=== PATIENT | female | born 1950 | race Caucasian/White ===

== ENCOUNTER 2025-08-31 23:43 | Emergency (ER) | payer MEDICARE, BC, SELFPAY ==
[2025-08-31 23:47] VITALS: BP 135/40
[2025-08-31 23:49] VITALS: BP 135/40; BMI 21.0
[2025-09-01 00:06] VITALS: BP 112/85
[2025-09-01 00:26] LABS: ALT (SGPT) 15 U/L (0-35); AST (SGOT) 18 U/L (14-36); Albumin 4.2 g/dl (3.5-5.0); Alkaline Phosphatase 82 U/L (38-126); Blood Urea Nitrogen 51 mg/dl (7-17); Calcium 10.2 mg/dl (8.4-10.2); Carbon Dioxide 28 mmol/L (22-30); Chloride 103 mmol/L (98-107); Estimated Creatinine Clearance 32 ml/min; Glucose 103 mg/dl (70-99); Lipase 181 U/L (23-300); Potassium 3.9 mmol/L (3.5-5.1); Sodium 140 mmol/L (135-145); Total Protein 6.8 g/dl (6.3-8.2); eGFR 52.73
[2025-09-01] MEDS: NSS 500 IV (00:31)
[2025-09-01 00:40] LABS: Hematocrit 36.4 % (37.0-47.0); Hemoglobin 12.2 g/dL (12.0-16.0); Mean Corp Hgb Conc. 33.5 g/dL (33.0-37.0); Mean Corpuscular Volume 97.8 fL (81.0-99.0); Nucleated Red Blood Cells % 0 %; Platelet Count 223 10^3/uL (130-400); Red Cell Dist. Width 13.2 % (11.5-14.5)
[2025-09-01 01:00] VITALS: BP 145/81
[2025-09-01] MEDS: ZOFRAN 4 MG IV (01:13)
--- NOTE | 2025-09-01 01:28 | ED.GENMED ---
History of Present Illness
General
Chief Complaint: Abdominal Symptoms
Source: patient
Exam Limitations: none
Time Seen by Provider: 08/31/25 23:55
Nursing documentation reviewed up to this point in time: agreed with
History of Present Illness
History of Present Illness:
see MDM
Past History
Past History
ED Past Medical History: CAD, HTN, Hypercholesterolemia, Other (dementia) and Other (psychosis)
Review of Systems
Review of Systems
Allergies reviewed?: Yes
All Other Systems: Not applicable
Phy Exam
Physical Exam
Physical Exam:
GENERAL: Alert , in no apparent distress, dementia
EYE: pupils equal and reactive
NECK: Supple
ENT: o/p clr, mmm.
CARDIAC: Regular rate and rhythm .
LUNGS: Clear breath sounds bilaterally, no acute respiratory distress, no wheezes/rales/rhonchi
ABDOMEN: Soft, mild periumbilical tenderness, no r/g, no cvat, normal bowel sounds
NEUROLOGICAL: Alert and oriented, no focal neuro deficits
SKIN: Warm and dry, skin intact.
MUSCULOSKELETAL: No edema, well perfused. neg paul's sign
PSYCH: Normal and appropriate interaction.
Course
Orders/Labs/Results
Orders:
Orders
09/01/25 00:03
IV Insert/Care/Rem.- Treatment PRN
09/01/25 00:05
Complete Blood Count/With Diff Urgent
Comprehensive Metabolic Panel Urgent
Lipase Urgent
09/01/25 00:21
Electrocardiogram (*1) Urgent
Reason for Study: QTc Monitoring
EKG- Treatment ONCE
0.9% Sodium Chloride 500 ml [Nss] 500 ml IV BOLUS
09/01/25 00:56
CT Abd/pel Without Iv Or Oral Urgent
Comment:
Reason For Exam: vomiting, diarrhea, dementia
Ondansetron Injectable [Zofran] 4 mg IV NOW STA
Abnormal Lab Results
09/01/25
00:05
WBC 12.8 H 10^3/uL
(4.8-10.8)
RBC 3.72 L 10^6/uL
(4.20-5.40)
Hct 36.4 L %
(37.0-47.0)
MCH 32.8 H pg
(27.0-31.0)
MPV 10.9 H fL
(7.4-10.4)
Abs Immat Gran (auto) 0.1 H 10^3/uL
(0-0.05)
Absolute Neuts (auto) 10.7 H 10^3/uL
(1.4-6.5)
Absolute Lymphs (auto) 1.1 L 10^3/uL
(1.2-3.4)
Absolute Monos (auto) 0.9 H 10^3/uL
(0.1-0.6)
Neutrophils % 83.1 H %
(42.2-75.2)
Lymphocytes % 8.5 L %
(20.5-51.1)
BUN 51 H mg/dl
(7-17)
Creatinine 1.1 H mg/dL
(0.6-1.0)
Glucose 103 H mg/dl
(70-99)
09/01/25 00:05
09/01/25 00:05
Vital Signs
Initial and Last Documented VS:
Initial Vital Signs
BP
135/40
08/31/25 23:47
Last Documented Vital Signs
Temp Pulse Resp BP Pulse Ox
36.5 C 72 18 138/83 96
08/31/25 23:49 09/01/25 02:30 09/01/25 02:30 09/01/25 02:00 09/01/25 01:45
MDM/Problems Addressed
Differential Diagnosis Includes:
see MDM
MDM/Problems Addressed:
Note:
CHIEF COMPLAINT(S)
- Vomiting and diarrhea.
HISTORY OF PRESENT ILLNESS
The patient is a 74-year-old female with h/o CAD, dementia, from [facility] accompanied by her son, presenting with vomiting and diarrhea starting today, x 2 of each. . The patient has been residing at a care facility where she was noted to have
low blood pressure earlier today. She cooked and consumed macaroni, but the specific ingredients were uncertain. Her son provided additional context, explaining that a couple of days ago, her medications Lexapro and Abilify were abruptly
discontinued, and she is currently managed on clonazepam, zoloft, mirtazepine. It is unclear if the medication changes have contributed to her current symptoms. The patient complained of abdominal pain localized to tcenter, describing it with humor
as feeling similar to , which she noted would be miraculous at her age.
pt has not had fever, chills, vomiting blood, change in mental status
PAST MEDICAL AND SURIGICAL HISTORY
- History of falling, recently two weeks ago, leading to hospitalization.
- Triple heart bypass surgery.
- Single kidney.
SOCIAL DETERMINANTS AFFECTING HEALTH
The patient lives in a care facility. Her son is present for support and decision-making regarding her care.
REVIEW OF SYSTEMS
- Gastrointestinal: Vomiting, diarrhea, abdominal pain.
- Cardiovascular: History of low blood pressure today.
PHYSICAL EXAM
- General: Alert, interacting with some humor.
- Oral: Performed a thorough examination of the oral cavity by lifting the tongue.
- Nursing notes reviewed and vital signs reviewed.
PLAN
- Administer intravenous fluids for dehydration.
- Perform blood work to assess for metabolic derangements or infection.
- Consider an electrocardiogram (EKG) to evaluate cardiac function in light of the recent medication changes.
- Evaluate the need for imaging, avoiding contrast materials due to the patients single kidney.
- Observe for possible withdrawal symptoms from the recent discontinuation of Lexapro and Abilify.
- Ensure the patient is not provided any drinks until further notice.
DIFFERENTIAL DIAGNOSIS
The Differential Diagnosis includes, in no particular order and is not limited to:
1. Viral gastroenteritis.
2. Medication withdrawal syndrome.
3. Foodborne illness.
4. Urinary tract infection.
5. Gastrointestinal infection.
6. Dehydration secondary to diarrhea and vomiting.
7. Electrolyte imbalance.
8. Intra-abdominal pathology.
9. Cardiac arrhythmia or cardiac-related issues due to medication changes.
10. Adverse drug reactions.
74-year-old female with history of pretty severe dementia from a [facility] with nausea vomiting and diarrhea today, 2 episodes of each. Her son was concerned because they just discontinued Lexapro and Abilify a few days ago because she has been
having some falls. Her last fall was about 2 weeks ago and she was hospitalized overnight at [place]. He does not believe that they weaned her off of these medications and was wondering if maybe the vomiting and diarrhea is because of that. She
also did eat some candy today and he was not sure if it was upsetting her belly. She is at her baseline mental status, ANO x 1. She does recognize her son but otherwise does not know why she is here or what is been going on and is not reliable
historian. For EMS her blood pressure was a little soft, 80s over 50s but for me here she has been stable. Her abdomen had some mild tenderness periumbilically. Given her dementia and her slight white count elevation I did CT her abdomen without
contrast due to her only having 1 kidney. She does have some mild chronic kidney disease. Her CT showed a mild colitis. Patient is not had a fever here. She has been well without vomiting. She was given a dose of Zofran and then reassess with a
p.o. challenge and she tolerated it. Given her severe dementia it would be potentially traumatic to admit her if she did not require admission and at this point I feel that she can be sent back to her [facility] with observation. Return
precautions given
*Pulse Oximetry
SaO2: 98
Oxygen Mode of Delivery: Room air
Patient hypoxic: no (98)
*Critical Care Note
Total Time (30-74mins, 75-104mins- exclusive of procedures): Not Applicable
ED Attending Note
-
Portions of this chart may have been created with voice recognition software.� Occasional wrong word or��sound alike� substitutions may have occurred due to the inherent limitations of voice recognition software.
Discharge Plan
Departure
Patient Disposition: Long-Term/SNF
Date of Disposition: 09/01/25
Time of Disposition: 03:32
Condition: Fair
Discharge Problem:
Colitis
Instructions: Clear Liquid Diet, Colitis (DC)
Referrals:
Len Mercado MD [Family Provider] - Follow up in 2-3 days
Activity Restrictions/Additional Instructions:
CHRIST HAD A SLIGHT WHITE COUNT AND A CAT SCAN SHOWING MILD COLITIS
SHE HAD NO VOMITING OR DIARRHEA HERE
HER VITALS ARE STABLE
BLAND FOOD/START WITH SIPS OF CLEARS TOLERATED AND ADVANCE DIET
RETURN FOR: HIGH FEVER, WORSE PAIN, BLOODY DIARRHEA, SEVERE DEHYDRATION ETC
Interventions
Interventions:
*Risk Screen - Suicide Last Done: 08/31/25 23:53
*General Assessment Last Done: 08/31/25 23:53
*Neglect/Abuse Screening Last Done: 08/31/25 23:53
*ED- Fall Risk Assessment Last Done: 08/31/25 23:53
*ED COVID-19 Vaccine History Last Done: 08/31/25 23:53
*ED Influenza Vaccine History Last Done: 08/31/25 23:53
*Nursing Disposition Last Done: 09/01/25 03:52
IZ-Cmxswp-Zwaclsmeio Assessment Last Done: 08/31/25 23:53
Discharge Date and Time
Print Language: KAZAKH
[2025-09-01 02:00] VITALS: BP 138/83
== END 2025-09-01 03:55 ==
LOC: EMR 23:43
PROVIDERS: EMERGENCY PHYSICIAN Student in an Organized Health Care Education/Training Program; FAMILY PHYSICIAN Internal Medicine
DX: K52.9 Noninfective gastroenteritis and colitis, unspecified (principal); E86.0 Dehydration; F03.C0 Unspecified dementia, severe, without behavioral disturbance, psychotic disturbance, mood disturbance, and anxiety; I25.810 Atherosclerosis of coronary artery bypass graft(s) without angina pectoris; I12.9 Hypertensive chronic kidney disease with stage 1 through stage 4 chronic kidney disease, or unspecified chronic kidney disease; N18.2 Chronic kidney disease, stage 2 (mild); E78.00 Pure hypercholesterolemia, unspecified; Z91.81 History of falling; Z95.1 Presence of aortocoronary bypass graft
CPT/HCPCS: 99284; 96374; 74176; 80053; 83690; 85025; 93005